=== PATIENT | male | born 1980 | race Caucasian/White ===

== ENCOUNTER 2016-07-28 20:53 | Emergency (ER) | payer OTHER ==
[2016-07-28 21:06] VITALS: BP 145/66; PULSE 81; TEMP 98.2; BMI 26.2
[2016-07-28] MEDS ORDERED: SODIUM CHLORIDE 0.9% 500 ML INFUS.BAG IV ONE (22:03)
--- NOTE | 2016-07-28 22:03 | PDOC ---
History of Present Illness - General History Source: Patient Exam Limitations: No Limitations - History of Present Illness Initial Comments: 07/28/16 22:07 The patient is a 36 year old male with past medical history of HSV I, HIV (CD4 count within 500s, viral load detectable due to recent relapse), polysubstance abuse, hemorrhoids s/p rectal fistula 7 years ago who presents to the ED with complaints of rectal bleed for the past week. He reports bright red blood present on his stool and on toilet paper when he uses the bathroom. He also reports that his PMD noted his liver enzymes to be elevated and reported that he should go to the ER. The patient missed his GI appointment recently in which he was supposed to schedule a colonoscopy. He denies any abdominal pain, nausea , vomiting, diarrhea or melena. He denies any recent illness, fever, chills, urinary symptoms. He denies any chest pain, cough, shortness of breath. PCP: Busby Zhou. <Priya Price - Last Filed: 07/29/16 01:53> <Theodore Gomes - Last Filed: 07/29/16 04:13> - General Chief Complaint: Rectal Bleed Stated Complaint: RECTAL BLEEDING/BLOOD WHILE URINATING Past History <Priya Price - Last Filed: 07/29/16 01:53> - Past Medical History Anemia: No Asthma: No Cancer: No Cardiac Disorders: No CVA: No COPD: No CHF: No Dementia: No Diabetes: No GI Disorders: No Disorders: Yes (anorectal condyloma, hemorrhoids) HTN: No Hypercholesterolemia: No HIV: Yes Liver Disease: No Seizures: No Thyroid Disease: No Other medical history: herpes - Immunization History Immunization Up to Date: Yes - Psycho/Social/Smoking Cessation Hx Anxiety: No Suicidal Ideation: No Smoking Status: Yes Smoking History: Current every day smoker Have you smoked in the past 12 months: Yes Number of Cigarettes Smoked Daily: 10 Cigars Per Day: 0 Information on smoking cessation initiated: No Hx Alcohol Use: No Drug/Substance Use Hx: No Substance Use Type: None Hx Substance Use Treatment: Yes ([facility]; 3 mo program in [place]) <Theodore Gomes - Last Filed: 07/29/16 04:13> - Past Medical History Allergies/Adverse Reactions: Allergies Allergy/AdvReac Type Severity Reaction Status Date / Time No Known Allergies Allergy Verified 07/28/16 21:06 Home Medications: Ambulatory Orders Nicotine Polacrilex [Nicotine Gum] 2 mg BC ASDIR #100 gum 06/02/15 Emtricita/Rilpivirine/Tenof Df [Complera Tablet] 1 each PO DAILY #30 tablet Multivitamins [Multivit ([facility] Formul[facility])] 1 tab PO DAILY #30 tab 06/12/16 Valacyclovir HCl [Valtrex -] 500 mg PO DAILY #30 tablet 06/12/16 Bupropion HCl [Bupropion HCl Sr] 100 mg PO AM #30 tablet.er 07/26/16 Quetiapine Fumarate [Seroquel -] 25 mg PO HS #30 tablet 07/26/16 Review of Systems - Review of Systems Able to Perform ROS?: Yes Comments:: 07/28/16 22:08 GENERAL/CONSTITUTIONAL: No fever or chills. No weakness. HEAD, EYES, EARS, NOSE AND THROAT: No change in vision. No ear pain or discharge. No sore throat. CARDIOVASCULAR: No chest pain or shortness of breath. RESPIRATORY: No cough, wheezing, or hemoptysis. GASTROINTESTINAL: Present: rectal bleeding No nausea, vomiting, diarrhea or constipation. GENITOURINARY: No dysuria, frequency, or change in urination. MUSCULOSKELETAL: No joint or muscle swelling or pain. No neck or back pain. SKIN: No rash NEUROLOGIC: No headache, vertigo, loss of consciousness, or change in strength/ sensation. ENDOCRINE: No increased thirst. No abnormal weight change. HEMATOLOGIC/LYMPHATIC: No anemia, easy bleeding, or history of blood clots. ALLERGIC/IMMUNOLOGIC: No hives or skin allergy. All Other Systems: Reviewed and Negative <Priya Price - Last Filed: 07/29/16 01:53> *Physical Exam - Vital Signs Last Vital Signs Temp Pulse Resp BP Pulse Ox 98.2 F 81 18 145/66 98 07/28/16 21:01 07/28/16 21:01 07/28/16 21:01 07/28/16 21:01 07/28/16 21:01 - Physical Exam Comments: 07/28/16 22:10 GENERAL: Awake, alert, and fully oriented, in no acute distress HEAD: No signs of trauma EYES: PERRLA, EOMI, sclera anicteric, conjunctiva clear ENT: Auricles normal inspection, hearing grossly normal, nares patent, oropharynx clear without exudates. Moist mucosa NECK: Normal ROM, supple, no lymphadenopathy, JVD, or masses LUNGS: Breath sounds equal, clear to auscultation bilaterally. No wheezes, and no crackles HEART: Regular rate and rhythm, normal S1 and S2, no murmurs, rubs or gallops ABDOMEN: Soft, nontender, normoactive bowel sounds. No guarding, no rebound. RECTAL: mild amount of hematochezia on stool. 3 external hemorrhoids, painful to palpation at 2,5,and 7 oclock, no evidence of thrombosis, no palpable strictures, no fistula, no ulcerations, no active bleeding, no sign of internal hemorrhoid EXTREMITIES: Normal range of motion, no edema. No clubbing or cyanosis. No cords, erythema, or tenderness NEUROLOGICAL: Cranial nerves II through XII grossly intact. Normal speech, normal gait SKIN: Warm, Dry, normal turgor, no rashes or lesions noted. <Priya Price - Last Filed: 07/29/16 01:53> - Vital Signs Last Vital Signs Temp Pulse Resp BP Pulse Ox 98.2 F 81 18 145/66 98 07/28/16 21:01 07/28/16 21:01 07/28/16 21:01 07/28/16 21:01 07/28/16 21:01 <Theodore Gomes - Last Filed: 07/29/16 04:13> ED Treatment Course - LABORATORY CBC & Chemistry Diagram: 07/28/16 22:15 07/28/16 22:15 - RADIOLOGY Radiograph Interpretation: 07/29/16 01:53 EXAM: CT abdomen/pelvis with contrast IMAGES: 484 DATE OF SERVICE: 2016-07-29 01:10:19.0 REASON FOR EXAM: History of rectal fistula and rectal bleeding COMPARISON: None FINDINGS: No obvious perirectal abscess or fistula is seen at this time. There is no free air. The gallbladder is partially contracted. There are no obvious gallstones. There is no hydronephrosis. There are no renal calculi. There is a moderate amount of stool noted in the colon. There is no evidence of intestinal obstruction. The appendix is normal in size. There is no evidence of appendicitis. Urinary bladder is unremarkable. There are no bladder calculi. There are scattered inguinal lymph nodes, likely reactive. THIS DOCUMENT HAS BEEN ELECTRONICALLY SIGNED Clinton Pelletier MD <Priya Price - Last Filed: 07/29/16 01:53> - LABORATORY CBC & Chemistry Diagram: 07/28/16 22:15 07/28/16 22:15 <Theodore Gomes - Last Filed: 07/29/16 04:13> Medical Decision Making - Medical Decision Making 07/29/16 04:03 This is a 36yo m with HIV+ and normal CD4 who presents with "rectal bleeding" and history of fistula. s/p correction remotely. He admits to recent rectal trauma secondary to receptive intercourse with male and no object insertion. He alleges as well, his issues stem from a drug relapse with crystal meth. He has no chest pain, palpitations or fevers and denotes the blood is scant and bright red. He has on PE a few external herniations; ROXANNA is negative for any acute findings. He has a negative CT abd/pelvis with PO/IV contrast. He has severe elevation of the LFT's including ALT>>AST which is suggestive of viral hepatitis; as well, given his HIV and lifestyle, he is high risk for HCV/HBV. He is noted to have left prior to being able to obtain a hepatitis pain and is presumed to have left the treatment area. I will call his phone and leave message strongly encouraging the patient to return for infectious disease workup. 07/29/16 04:13 <Theodore Gomes - Last Filed: 07/29/16 04:13> *DC/Admit/Observation/Transfer - Attestations Scribe Attestion: 07/28/16 22:10 Documentation prepared by Priya Price, acting as vice president medical affairs for Theodore Gomes MD. <Priya Price - Last Filed: 07/29/16 01:53> - Attestations Physician Attestion: 07/29/16 04:13 I, Dr. Theodore Gomes MD, attest that this document has been prepared under my direction and personally reviewed by me in its entirety. I further attest, that it accurately reflects all work, treatment, procedures and medical decision -making performed by me. <Theodore Gomes - Last Filed: 07/29/16 04:13> Diagnosis at time of Disposition: Worried well, Patient left before treatment completed, Rectal bleed, Hepatitis , Transaminitis - Discharge Dispostion Disposition: ELOPED - Referrals Referrals: STAFF,NOT ON [Primary Care Provider] -
[2016-07-28] MEDS ORDERED: LIDOCAINE HCL 2% JELLY 10 ML CARTRIDGE ONE (22:19)
[2016-07-28 23:15] LABS: BASOPHIL 0.8 % (0-2.0); EOSINOPHIL 2.1 % (0-4.5); MCH 30.3 pg (25.7-33.7); MCHC 33.1 g/dl (32.0-35.9); MEAN CELL VOLUME 91.5 fl (80-96); MEAN PLT VOLUME 9.1 fl (7.5-11.1); NEUTROPHILS 51.6 % (42.8-82.8); PLATELET COUNT 207 K/MM3 (134-434); RDW 14.8 % (11.9-15.9); WHITE BLOOD COUNT 6.2 K/mm3 (4.0-10.0)
[2016-07-28 23:18] LABS: URINE APPEARANCE CLEAR; URINE BILIRUBIN NEGATIVE (NEGATIVE); URINE BLOOD NEGATIVE (NEGATIVE); URINE COLOR DKYELLOW; URINE GLUCOSE (UA) NEGATIVE (NEGATIVE); URINE KETONE NEGATIVE (NEGATIVE); URINE LEUK ESTERASE NEGATIVE (NEGATIVE); URINE NITRITE NEGATIVE (NEGATIVE); URINE PROTEIN NEGATIVE (NEGATIVE); URINE UROBILINOGEN 4.0 E.U/dl E.U./dl (0.2-1.0)
[2016-07-28 23:26] LABS: INR 1.03 (0.82-1.09); PROTHROMBIN TIME (PATIENT) 11.3 SEC (9.98-11.88)
[2016-07-28 23:39] LABS: ALBUMIN 3.8 g/dl (3.4-5.0); ANION GAP 8 (8-16); BILIRUBIN,TOTAL 1.3 mg/dL (0.2-1.0); CALCIUM 8.6 mg/dL (8.5-10.1); CO2 31 mmol/L (21-32); CREATININE 1.1 mg/dL (0.7-1.3); GLUCOSE,RANDOM 79 mg/dL (74-106); MAGNESIUM 2.3 mg/dL (1.8-2.4); PHOSPHOROUS 4.1 mg/dL (2.5-4.9); TOT PROT 7.2 g/dl (6.4-8.2)
[2016-07-28 23:45] LABS: ALK PHOS 172 U/L (45-117); SGOT/AST 520 U/L (15-37)
[2016-07-28 23:46] LABS: SGPT/ALT 1052 U/L (12-78)
== END 2016-07-29 02:20 | disposition left against medical advice (07) ==
LOC: JER 20:53 → SUPCPDRO 20:53 → JER 07-29 02:20
DX: Z53.21 Procedure and treatment not carried out due to patient leaving prior to being seen by health care provider (principal); K62.5 Hemorrhage of anus and rectum; Z71.1 Person with feared health complaint in whom no diagnosis is made; Z21 Asymptomatic human immunodeficiency virus [HIV] infection status; F17.210 Nicotine dependence, cigarettes, uncomplicated
CPT/HCPCS: 36415; 71010-TC; 74177-TC; 80053; 81003; 83690; 83735; 84100; 85025; 85610; 86850; 86900; 86901; 99281-25

== ENCOUNTER 2016-08-07 20:00 | Emergency (ER) | payer OTHER ==
[2016-08-07 20:13] VITALS: BP 134/60; PULSE 91; TEMP 99.5; BMI 26.2
[2016-08-07] MEDS ORDERED: ASPIRIN 81 MG CHEWABLE TABLETS PO ONE (20:42)
[2016-08-07] MEDS ORDERED: ASPIRIN 81 MG CHEWABLE TABLETS ONE (20:45)
[2016-08-07 21:06] LABS: EOSINOPHIL 3.4 % (0-4.5); MCH 29.5 pg (25.7-33.7); MCHC 32.6 g/dl (32.0-35.9); MEAN CELL VOLUME 90.4 fl (80-96); MEAN PLT VOLUME 9.1 fl (7.5-11.1); NEUTROPHILS 48.1 % (42.8-82.8); PLATELET COUNT 255 K/MM3 (134-434); RDW 14.4 % (11.9-15.9); WHITE BLOOD COUNT 7.5 K/mm3 (4.0-10.0)
[2016-08-07 21:27] LABS: INR 1.17 (0.82-1.09); PROTHROMBIN TIME (PATIENT) 12.9 SEC (9.98-11.88)
--- NOTE | 2016-08-07 21:29 | PDOC ---
History of Present Illness - General History Source: Patient Exam Limitations: No Limitations - History of Present Illness Initial Comments: 08/07/16 22:14 Patient is a 36 year old male with a significant past medical history of HSV I, HIV (CD4 count within 500s, viral load detectable due to recent relapse), polysubstance abuse, hemorrhoids s/p rectal fistula 7 years ago who presents to the ED with epigastric pain, rectum swelling and bleeding. He reports fever and cough with phleghm. He also reports painful bowel movements. Patient notes that he was at the [facility] last week because he has been feeling sick. He had a abdomen and pelvis CT on 07/28 which shows no acute pathology and CXR which was negative. Past medical history: hepatitis C, HIV, hyperkalemia, rectal bleed, rectal discomfort, transaminitis, condyloma, hemorrhoids, herpes simplex I of male genitalia Past surgical history: none Social history: marijuana use, ecstasy abuse, methamphetamine abuse, tobacco use PCP - Dr Christianson [facility] <Candis Allen - Last Filed: 08/07/16 22:13> <Cinda Sanford - Last Filed: 08/07/16 23:08> - General Chief Complaint: Chest Pain Stated Complaint: CHEST PAIN Time Seen by Provider: 08/07/16 20:13 Past History <aCndis Allen - Last Filed: 08/07/16 22:13> - Past Medical History Anemia: No Asthma: No Cancer: No Cardiac Disorders: No CVA: No COPD: No CHF: No Dementia: No Diabetes: No GI Disorders: No Disorders: Yes (anorectal condyloma, hemorrhoids) HTN: No Hypercholesterolemia: No HIV: Yes Liver Disease: No Seizures: No Thyroid Disease: No Other medical history: Hep C - Immunization History Immunization Up to Date: Yes - Psycho/Social/Smoking Cessation Hx Anxiety: No Suicidal Ideation: No Smoking Status: Yes Smoking History: Never smoked Have you smoked in the past 12 months: Yes Number of Cigarettes Smoked Daily: 10 Cigars Per Day: 0 Information on smoking cessation initiated: No Hx Alcohol Use: No Drug/Substance Use Hx: No Substance Use Type: None Hx Substance Use Treatment: Yes ([facility] Galleg[facility]; 3 mo program in [place]) <Cinda Sanford - Last Filed: 08/07/16 23:08> - Past Medical History Allergies/Adverse Reactions: Allergies Allergy/AdvReac Type Severity Reaction Status Date / Time No Known Allergies Allergy Verified 08/07/16 20:10 Home Medications: Ambulatory Orders Nicotine Polacrilex [Nicotine Gum] 2 mg BC ASDIR #100 gum 06/02/15 Emtricita/Rilpivirine/Tenof Df [Complera Tablet] 1 each PO DAILY #30 tablet Multivitamins [Multivit ([facility] Form[facility])] 1 tab PO DAILY #30 tab 06/12/16 Valacyclovir HCl [Valtrex -] 500 mg PO DAILY #30 tablet 06/12/16 Bupropion HCl [Bupropion HCl Sr] 100 mg PO AM #30 tablet.er 07/26/16 Quetiapine Fumarate [Seroquel -] 25 mg PO HS #30 tablet 07/26/16 Amox-Tr/K Cl [Augmentin - 875Mg Tablet] 1 tab PO BID #20 tablet 08/07/16 Respiratory Specific PMHX - Complaint Specific PMHX Pneumonia: No TB (Tuberculosis): No <Cinda Sanford - Last Filed: 08/07/16 23:08> Review of Systems - Review of Systems Able to Perform ROS?: Yes Comments:: 08/07/16 22:14 CONSTITUTIONAL: Present: fever, generalized weakness, "aches and pains" Absent: chills, diaphoresis, malaise, loss of appetite HEENT: Present: throat pain Absent: rhinorrhea, nasal congestion, throat swelling, difficulty swallowing, mouth swelling, ear pain, eye pain, visual Changes CARDIOVASCULAR: Absent: chest pain, syncope, palpitations, irregular heart rate, lightheadedness , peripheral edema RESPIRATORY: Present: cough Absent: shortness of breath, dyspnea with exertion, orthopnea, wheezing, stridor , hemoptysis GASTROINTESTINAL: Present: rectal swelling, abdominal pain Absent: abdominal distension, nausea, vomiting, diarrhea, constipation, melena, hematochezia GENITOURINARY: Absent: dysuria, frequency, urgency, hesitancy, hematuria, flank pain, genital pain MUSCULOSKELETAL: Present: diffuse body aches Absent: myalgia, arthralgia, joint swelling SKIN: Absent: rash, itching, pallor HEMATOLOGIC/IMMUNOLOGIC: Absent: easy bleeding, easy bruising, lymphadenopathy, frequent infections ENDOCRINE: Absent: unexplained weight gain, unexplained weight loss, heat intolerance, cold intolerance NEUROLOGIC: Absent: headache, focal weakness or paresthesias, dizziness, unsteady gait, seizure, mental status changes, bladder or bowel incontinence PSYCHIATRIC: Absent: anxiety, depression, suicidal or homicidal ideation, hallucinations. <Candis Allen - Last Filed: 08/07/16 22:13> *Physical Exam - Vital Signs Last Vital Signs Temp Pulse Resp BP Pulse Ox 99.5 F 91 H 14 134/60 98 08/07/16 20:10 08/07/16 20:10 08/07/16 20:10 08/07/16 20:10 08/07/16 20:10 - Physical Exam Comments: 08/07/16 22:17 GENERAL: +Thin. Well developed, well nourished. Awake and alert. No acute distress. HEENT: +Erythematous oropharynx. Normocephalic, atraumatic. PERRLA, EOMI. No conjunctival pallor. Sclera are non-icteric. Moist mucous membranes. NECK: Supple. Full ROM. No JVD. Carotid pulses 2+ and symmetric, without bruits. No thyromegaly. No lymphadenopathy. CARDIOVASCULAR: Regular rate and rhythm. No murmurs, rubs, or gallops. Distal pulses are 2+ and symmetric. PULMONARY: No evidence of respiratory distress. Lungs clear to auscultation bilaterally. No wheezing, rales or rhonchi. ABDOMINAL: +mild abdominal epigastric tenderness. Soft. Non-distended. No rebound or guarding. No organomegaly. Normoactive bowel sounds. MUSCULOSKELETAL Normal range of motion at all joints. No bony deformities or tenderness. No CVA tenderness. EXTREMITIES: No cyanosis. No clubbing. No edema. No calf tenderness. SKIN: Warm and dry. Normal capillary refill. No rashes. No jaundice. NEUROLOGICAL: Alert, awake, appropriate. Cranial nerves 2-12 intact. No deficits to light touch and temperature in face, upper extremities and lower extremities. No motor deficits in the in face, upper extremities and lower extremities. Normoreflexic in the upper and lower extremities. Normal speech. PSYCHIATRIC: Cooperative. Good eye contact. Appropriate mood and affect. <Candis Allen - Last Filed: 08/07/16 22:13> - Vital Signs Last Vital Signs Temp Pulse Resp BP Pulse Ox 99.5 F 91 H 14 134/60 98 08/07/16 20:10 08/07/16 20:10 08/07/16 20:10 08/07/16 20:10 08/07/16 20:10 <JuvenalCindamalachi Dang - Last Filed: 08/07/16 23:08> ED Treatment Course - LABORATORY CBC & Chemistry Diagram: 08/07/16 21:00 08/07/16 21:00 - ADDITIONAL ORDERS Additional order review: Laboratory Results 08/07/16 21:00 INR 1.17 H 08/07/16 21:00 RBC 5.17 MCV 90.4 MCHC 32.6 RDW 14.4 MPV 9.1 Neutrophils % 48.1 Lymphocytes % 31.8 Monocytes % 15.7 H Eosinophils % 3.4 Basophils % 1.0 - Medications Given in the ED: ED Medications Discontinued Medications Generic Name Dose Route Start Last Admin Trade Name Freq PRN Reason Stop Dose Admin Al Hydroxide/Mg Hydroxide 30 ml 08/07/16 21:37 08/07/16 21:49 Mylanta Oral Suspension - PO 08/07/16 21:38 30 ml ONCE ONE Administration Aspirin 162 mg 08/07/16 20:42 08/07/16 20:54 Asa - PO 08/07/16 20:43 162 mg ONCE ONE Administration Ketorolac Tromethamine 30 mg 08/07/16 21:49 08/07/16 21:49 Toradol Injection - IVPUSH 08/07/16 21:50 30 mg NOW ONE Administration <Candis Allen - Last Filed: 08/07/16 22:13> - LABORATORY CBC & Chemistry Diagram: 08/07/16 21:00 08/07/16 21:00 - ADDITIONAL ORDERS Additional order review: 08/07/16 21:00 RBC 5.17 MCV 90.4 MCHC 32.6 RDW 14.4 MPV 9.1 Neutrophils % 48.1 Lymphocytes % 31.8 Monocytes % 15.7 H Eosinophils % 3.4 Basophils % 1.0 - RADIOLOGY Radiology Studies Ordered: Category Date Time Status CHEST PA & LAT [RAD] Stat Radiology 08/07/16 20:42 Taken - Medications Given in the ED: ED Medications Discontinued Medications Generic Name Dose Route Start Last Admin Trade Name Freq PRN Reason Stop Dose Admin Aspirin 162 mg 08/07/16 20:42 08/07/16 20:54 Asa - PO 08/07/16 20:43 162 mg ONCE ONE Administration <Cinda Sanford - Last Filed: 08/07/16 23:08> *DC/Admit/Observation/Transfer - Attestations Scribe Attestion: 08/07/16 22:18 Documentation prepared by MARY Hansen, acting as medical billing supervisor for Cinda Sanford MD. <Candis Allen - Last Filed: 08/07/16 22:13> <Cinda Sanford - Last Filed: 08/07/16 23:08> Diagnosis at time of Disposition: Acute streptococcal pharyngitis - Discharge Dispostion Disposition: HOME Condition at time of disposition: Stable - Referrals Referrals: STAFF,NOT ON [Primary Care Provider] - - Patient Instructions Printed Discharge Instructions: DI for Strep Throat Additional Instructions: 1-pick up operator your prescription at [facility] 2-Follow up at the [facility] this week 3-Stay hydrated,drink plenty of water 4-Take tylenol for fever and body aches 5-please return if you have any worsening symptoms
[2016-08-07] MEDS ORDERED: KETOROLAC TROMETHAMINE 30 MG/1 ML VIAL ONE (21:34)
[2016-08-07] MEDS ORDERED: SODIUM CHLORIDE 1,000 ML IV STA (21:35)
[2016-08-07] MEDS ORDERED: MAG HYDROX/AL HYDROX/SIMETH 30 ML UNIT-DOSE CUP PO ONE (21:37)
[2016-08-07] MEDS ORDERED: MAG HYDROX/AL HYDROX/SIMETH 30 ML UNIT-DOSE CUP ONE (21:48)
[2016-08-07] MEDS ORDERED: KETOROLAC TROMETHAMINE 30 MG/1 ML VIAL IVPUSH ONE (21:49)
[2016-08-07 22:04] LABS: ALBUMIN 2.9 g/dl (3.4-5.0); ANION GAP 11 (8-16); BILIRUBIN,TOTAL 0.6 mg/dL (0.2-1.0); CALCIUM 8.5 mg/dL (8.5-10.1); CO2 31 mmol/L (21-32); CREATININE 0.8 mg/dL (0.7-1.3); GLUCOSE,RANDOM 102 mg/dL (74-106); TOT PROT 6.7 g/dl (6.4-8.2)
[2016-08-07 22:07] LABS: ALK PHOS 146 U/L (45-117); TROPONIN I < 0.02 ng/ml (0.00-0.05)
[2016-08-07] MEDS ORDERED: CEFTRIAXONE 1 GM in DEXTROSE 5%-WATER - 50 ML IVPB ONE (22:18)
[2016-08-07 22:22] LABS: MAGNESIUM 2.1 mg/dL (1.8-2.4); SGPT/ALT 606 U/L (12-78)
[2016-08-07 22:23] LABS: SGOT/AST 248 U/L (15-37)
[2016-08-07] MEDS ORDERED: CEFTRIAXONE 50 ML ONE (22:23)
--- NOTE | 2016-08-08 13:31 | EKG ---
Test Reason : Blood Pressure : / mmHG Vent. Rate : 093 BPM Atrial Rate : 093 BPM P-R Int : 120 ms QRS Dur : 088 ms QT Int : 338 ms P-R-T Axes : 067 076 068 degrees QTc Int : 420 ms NORMAL SINUS RHYTHM NORMAL ECG WHEN COMPARED WITH ECG OF 08-JUL-1997 08:32, VENT. RATE HAS INCREASED BY 34 BPM Confirmed by VINICIUS HURLEY MD ([id number]) on 08/08/2016 1:31:25 PM Referred By: Confirmed By:VINICIUS HURLEY MD
--- NOTE | 2016-08-12 09:40 | PDOC ---
*Physical Exam - Vital Signs Last Vital Signs Temp Pulse Resp BP Pulse Ox 99.5 F 91 H 14 134/60 98 08/07/16 20:10 08/07/16 20:10 08/07/16 20:10 08/07/16 20:10 08/07/16 20:10 ED Treatment Course - LABORATORY CBC & Chemistry Diagram: 08/07/16 21:00 08/07/16 21:00 - ADDITIONAL ORDERS Additional order review: 08/07/16 21:40 Blood Culture - Preliminary Blood - Peripheral Venous NO GROWTH OBTAINED AFTER 96 HOURS, INCUBATION TO CONTINUE FOR 1 DAYS. 08/07/16 21:40 Blood Culture - Preliminary Blood - Peripheral Venous NO GROWTH OBTAINED AFTER 96 HOURS, INCUBATION TO CONTINUE FOR 1 DAYS. 08/07/16 21:40 Throat Culture - Final Throat Streptococcus Pyogenes Grp A Group A Strep Rapid Antigen - Final 08/07/16 21:40 Influenza Types A,B Antigen (SYLVIA) - Final Nasopharyngeal Swab - Final 08/07/16 21:00 RBC 5.17 MCV 90.4 MCHC 32.6 RDW 14.4 MPV 9.1 Neutrophils % 48.1 Lymphocytes % 31.8 Monocytes % 15.7 H Eosinophils % 3.4 Basophils % 1.0 - Medications Given in the ED: ED Medications Discontinued Medications Generic Name Dose Route Start Last Admin Trade Name Heberq PRN Reason Stop Dose Admin Al Hydroxide/Mg Hydroxide 30 ml 08/07/16 21:37 08/07/16 21:49 Mylanta Oral Suspension - PO 08/07/16 21:38 30 ml ONCE ONE Administration Aspirin 162 mg 08/07/16 20:42 08/07/16 20:54 Asa - PO 08/07/16 20:43 162 mg ONCE ONE Administration Sodium Chloride 1,000 mls @ 1,000 mls/hr 08/07/16 21:35 08/07/16 21:39 Normal Saline - IV 08/07/16 22:34 1,000 mls/hr ASDIR STA Administration Ceftriaxone Sodium 1 gm/ 50 mls @ 100 mls/hr 08/07/16 22:18 08/07/16 22:26 Dextrose IVPB 08/07/16 22:47 100 mls/hr ONCE ONE Administration Ketorolac Tromethamine 30 mg 08/07/16 21:49 08/07/16 21:49 Toradol Injection - IVPUSH 08/07/16 21:50 30 mg NOW ONE Administration Medical Decision Making - Medical Decision Making 08/12/16 09:38 I received a call from [facility] re: this patient Blood culture 1 bottle positive 4 days after drawn, gram positive rods ( possible contaminate) Call placed to patient at [phone] No one picked up Voicemail left for patient to call the ER *DC/Admit/Observation/Transfer Diagnosis at time of Disposition: Strep pharyngitis - Discharge Dispostion Disposition: HOME Condition at time of disposition: Stable - Prescriptions Prescriptions: Amox-Tr/K Cl [Augmentin - 875Mg Tablet] 1 tab PO BID #20 tablet - Referrals Referrals: STAFF,NOT ON [Primary Care Provider] - - Patient Instructions Printed Discharge Instructions: DI for Strep Throat Additional Instructions: 1-orange picker your prescription at [facility] pharmacy 2-Follow up at the [facility] this week 3-Stay hydrated,drink plenty of water 4-Take tylenol for fever and body aches 5-please return if you have any worsening symptoms - Post Discharge Activity
== END 2016-08-07 23:18 | disposition home or self-care (01) ==
LOC: JER 20:00
PROC: 3E0337Z Introduction of Electrolytic and Water Balance Substance into Peripheral Vein, Percutaneous Approach (ICD-10-PCS; principal; 2016-08-07)
PROC: 3E03329 Introduction of Other Anti-infective into Peripheral Vein, Percutaneous Approach (ICD-10-PCS; 2016-08-07)
PROC: 3E0333Z Introduction of Anti-inflammatory into Peripheral Vein, Percutaneous Approach (ICD-10-PCS; 2016-08-07)
DX: J02.0 Streptococcal pharyngitis (principal); B95.0 Streptococcus, group A, as the cause of diseases classified elsewhere; B18.2 Chronic viral hepatitis C; Z21 Asymptomatic human immunodeficiency virus [HIV] infection status; A60.02 Herpesviral infection of other male genital organs
CPT/HCPCS: 36415; 71020-TC; 80053; 82550; 83735; 84484; 85025; 85610; 87040; 87070; 87076; 87430; 87804; 93005; 93010; 96361; 96365; 96375; 99282-25